=== PATIENT | female | born 1990 | race Caucasian/White ===

== ENCOUNTER 2020-07-15 10:17 | Outpatient (CLI) | payer OTHER ==
[2020-07-15 17:57] LABS: MEAN CORPUSCULAR HEMOGLOBIN 32.9 pg (27.0-31.0); MEAN CORPUSCULAR HGB CONC 33.3 g/dL (32.0-36.0); MEAN CORPUSCULAR VOLUME 98.6 fL (81.0-99.0); MEAN PLATELET VOLUME 10.8 fL (7.9-10.8); RED BLOOD COUNT 3.65 10^6/uL (4.20-5.40); WHITE BLOOD COUNT 9.7 x10^3/uL (4.8-10.8)
[2020-07-15 18:36] LABS: THYROID STIMULATING HORMONE 1.72 uIU/mL (0.34-5.60)
[2020-07-15 18:41] LABS: % IRON SATURATION 17 % (20-50); GLUCOSE,1H PP 50GM DOSE 156; IRON 84 ug/dL (28-170); TOTAL IRON BINDING CAPACITY 508 ug/dL (250-450); TRANSFERRIN 363 mg/dL (192-382)
[2020-07-15 18:42] LABS: FERRITIN 8.4 ng/mL (11.0-306.8)
== END 2020-07-15 10:18 | disposition home or self-care (01) ==
LOC: LAB.N 10:17
PROVIDERS: ATTEND Obstetrics & Gynecology
DX: O99.419 Diseases of the circulatory system complicating pregnancy, unspecified trimester (principal); R00.0 Tachycardia, unspecified
CPT/HCPCS: 36415; 82728; 82950; 83540; 84443; 84466; 85027

== ENCOUNTER 2020-07-19 07:48 | Outpatient (CLI) | payer OTHER ==
[2020-07-19 08:21] LABS: GTT GLUCOSE,FASTING 93 mg/dL (70-100)
== END 2020-07-19 07:49 | disposition home or self-care (01) ==
LOC: LAB 07:48
PROVIDERS: ATTEND Obstetrics & Gynecology
DX: O99.810 Abnormal glucose complicating pregnancy (principal)
CPT/HCPCS: 36415; 82951; 82952

== ENCOUNTER 2020-09-03 16:39 | Outpatient (CLI) | payer OTHER ==
--- NOTE | 2020-09-04 10:41 | Ultrasound Report ---
PROCEDURE: OB F/U or Repeat INDICATIONS: GESTATIONAL DIABETES OUTSIDE/PRIOR DATING DATA: Last menstrual period (LMP): Not available. LMP-based estimated date of delivery (PRUDENCE): Not available. First dating scan (date and location): 03/13/2020. Estimated date of delivery (PRUDENCE) from first dating scan: 10/02/2020. The below data below was generated using the first reported OB ultrasound PRUDENCE of 10/02/2020 TECHNIQUE: Real-time scanning was performed of the fetus, with image documentation and biometric measurements. Endovaginal scanning: Not needed COMPARISON: No images available. FINDINGS: General: A single living intrauterine gestation is present. Presentation: Variable at this time Placenta: Placental position is posterior, without previa. Amniotic fluid index: 15.7 cm, normal for gestational age. heart rate: 171 beats per minute. Maternal cervical canal: 4.2 cm long; normal length is 2.5 cm or more. biometrics: Biparietal diameter: 8.7 cm, 35 weeks 2 days Head circumference: 33.2 cm, 37 weeks 6 days Abdominal circumference: 33.5 cm, 37 weeks 3 days Femur length: 7.3 cm, 37 weeks 3 days Estimated gestational age from initial scan: 35 weeks 6 days. Composite gestational age from present scan: 37 weeks 0 days Estimated weight and percentile: 3146 g, 85th percentile Measurement variability in biometric dating: +/- 10 days from 12-20 weeks gestation, +/- 2 weeks from 20-30 weeks gestation, +/- 3 weeks at 30 weeks gestation or more. Other: Not applicable. IMPRESSION: Normal amniotic fluid volume, estimated weight at the 85th percentile. The deliver y date is projected to be centered on 10/02/2020. Limited evaluation of anatomy due to late gest ational age. Reviewed by: James Scott MD on 09/04/2020 10:40 AM PDT Approved by: James Scott MD on 09/04/2020 10:40 AM PDT Station ID: [id number]
== END 2020-09-03 16:40 | disposition home or self-care (01) ==
LOC: DI 16:39
PROVIDERS: ATTEND Obstetrics & Gynecology
DX: O24.419 Gestational diabetes mellitus in pregnancy, unspecified control (principal); Z3A.35 35 weeks gestation of pregnancy

== ENCOUNTER 2020-09-05 08:00 | Outpatient (CLI) | payer OTHER | END 2020-09-05 23:59 | LOC: LAB.WC 08:00 | PROVIDERS: ATTEND Obstetrics & Gynecology | DX: Z34.80 Encounter for supervision of other normal pregnancy, unspecified trimester (principal) | CPT/HCPCS: 87797 ==

== ENCOUNTER 2020-09-25 20:13 | Inpatient (IN) | payer OTHER ==
[2020-09-25] MEDS ORDERED: LACTATED RINGERS 1,000 ML IV ONE (20:53)
[2020-09-25] MEDS ORDERED: CARBOPROST TROMETHAMINE 250 MCG/ML AMP IM PRN (20:55)
[2020-09-25] MEDS ORDERED: miSOPROStoL 200 MCG TABLET BC PRN (20:55)
[2020-09-25] MEDS ORDERED: OXYTOCIN 10 UNIT/ML VIAL IM PRN (20:55)
[2020-09-25] MEDS ORDERED: TRANEXAMIC ACID IN NACL 1,000 MG/100 ML BAG IV PRN (20:55)
[2020-09-25] MEDS ORDERED: METHYLERGONOVINE 0.2 MG/ML VIAL IM PRN (20:55)
[2020-09-25] MEDS ORDERED: SODIUM CHLORIDE FLUSH 0.9% 10 ML SYRINGE IVP PRN (20:55)
[2020-09-25] MEDS ORDERED: LIDOCAINE-MPF 1% 30 ML VIAL ID PRN (20:55)
[2020-09-25] MEDS ORDERED: miSOPROStoL 100 MCG TABLET BC SCH (21:00)
[2020-09-25 21:10] LABS: BASOPHILS % (AUTO) 0.3 %; EOSINOPHILS # (AUTO) 0.1 10^3/uL (0.0-0.7); EOSINOPHILS % (AUTO) 0.9 %; HCT - HEMATOCRIT 36.7 % (37.0-47.0); HGB - HEMOGLOBIN 11.8 g/dL (12.0-16.0); LYMPHOCYTES # (AUTO) 1.4 10^3/uL (1.5-3.5); LYMPHOCYTES % (AUTO) 13.1 %; MEAN CORPUSCULAR HEMOGLOBIN 30.6 pg (27.0-31.0); MEAN CORPUSCULAR HGB CONC 32.2 g/dL (32.0-36.0); MEAN CORPUSCULAR VOLUME 95.1 fL (81.0-99.0); MEAN PLATELET VOLUME 11.8 fL (7.9-10.8); MONOCYTES # (AUTO) 0.6 10^3/uL (0.0-1.0); MONOCYTES % (AUTO) 6.2 %; NEUTROPHILS # (AUTO) 8.1 10^3/uL (1.5-6.6); NEUTROPHILS % (AUTO) 78.7 %; PLT - PLATELET COUNT 180 10^3/uL (130-450); RED BLOOD COUNT 3.86 10^6/uL (4.20-5.40); RED CELL DISTRIBUTION WIDTH 13.7 % (12.0-15.0); WHITE BLOOD COUNT 10.3 x10^3/uL (4.8-10.8)
[2020-09-25 21:22] LABS: ALBUMIN 3.5 g/dL (3.2-5.5); ALBUMIN/GLOBULIN RATIO 1.1 (1.0-2.2); BILIRUBIN,TOTAL 0.6 mg/dL (0.2-1.0); CALCIUM 9.2 mg/dL (8.5-10.3); CREATININE 0.7 mg/dL (0.4-1.0); POTASSIUM 4.3 mmol/L (3.5-5.0); TOTAL PROTEIN 6.6 g/dL (6.7-8.2)
--- NOTE | 2020-09-25 21:22 | HISTORY & PHYSICAL EXAMINATION ---
Admit History - Visit Reason Visit Reason: Other (Patient is being admitted for induction due to GDM Type A1.) - : 3 Parity: 2 Premature: 0 Ectopic: 0 : 0 Care: positive: [facility] (Patient has had care with Dr. Jade.) Risk/History: positive: Gestational diabetes (Diet controlled GDM, Type A1), Labor induction Smoking Status: Never smoker - Mother's Labs Mother's Blood Type: positive: A Mother's RH: positive: Positive GBS: positive: Group B Step Negative Rubella Status: positive: Immune Meds/Allgy - Allergies Allergies/Adverse Reactions: Allergies Allergy/AdvReac Type Severity Reaction Status Date / Time No Known Drug Allergies Allergy Verified 09/25/20 20:54 Review of Systems - Cardiovascular Cariovascular: denies: Irregular heart rate, Palpitations - Respiratory Respiratory: denies: Cough, Wheezing - Gastrointestinal Gastrointestinal: denies: Abdominal pain - Genitourinary Genitourinary: denies: Dysuria - Musculoskeletal Musculoskeletal: denies: Muscle pain - Integumentary Integumentary: denies: Rash - Neurological Neurological: denies: General weakness - Psychiatric Psychiatric: denies: Depression, Anxiety Physical - Abdominal Exam Vital Signs: Temp Pulse Resp BP Pulse Ox 97.7 F 93 16 129/76 09/25/20 20:23 09/25/20 20:23 09/25/20 20:23 09/25/20 20:23 Contraction Frequency (min/apart): Irregular contractions when admitted, spacing out. Contraction Intensity: positive: Mild - Monitoring Strip Review: positive: Category I (When patient first placed on monitor heart rate was 150's with moderate variability. Patient had one very short variabile decelerations. 500cc fluid bolus of LR started and heart rate is down to 140's with moderate variability and accelerations.) - Presentation Presentation: positive: Vertex - Vaginal Exam Membranes: positive: Membranes intact Dilation (in cm): 2cm Effacement (%): 50% Station: positive: -3, Ballotable - Speculum Exam Speculum Exam Performed: positive: No - Other Notes Labor Progress Note/Additional Text: Abdomen: Soft, non-tender to palpation. Chest: Clear to auscultation. Good breath sounds in all liz. Heart: RRR without murmur or gallop. Extremities: No pretibial or pedal edema. ' Neuor: DTR's +2/+4, Alert and oriented times three. Plan for Labor - Plan For Labor Plan for Labor: Discussed with patient and induction of labor due to 39 0/7 and Gestational Diabetes. Discussed starting with Cytotec and transitioning to Pitocin. Discussed that Epidural is available. Patient has had two unmedicated deliveries, but is open to Epidural. A-IUP 39 0/7 with Gestational Diabetes Type A1. P- Cytotec 50mcg bucal placement Q 6 hours. Not to exceed 6 doses. Will progress to Pitocin as cervix progresses. Continuous monitoring. Physical Exam Height: 5 ft 6 in
[2020-09-25] MEDS ORDERED: LACTATED RINGERS 1,000 ML IV SCH (22:00)
[2020-09-26] MEDS ORDERED: TERBUTALINE 1 MG/ML VIAL SUBQ PRN
[2020-09-26] MEDS ORDERED: SODIUM CHLORIDE FLUSH 0.9% 10 ML SYRINGE IVP SCH (01:00)
[2020-09-26] MEDS ORDERED: ROPIVACAINE 0.2% 0 MG/0 ML BAG EP ONE (03:34)
[2020-09-26] MEDS: LACTATED RINGERS 1,000 ML IV SCH ×2 (03:39→11:21)
--- NOTE | 2020-09-26 05:40 | ANESTHESIA ---
Pre-Anesthesia VS, & Labs - Diagnosis labor induction - Procedure epidural Vital Signs: Temp Pulse Resp BP Pulse Ox 36.5 C 93 16 129/76 09/25/20 20:23 09/25/20 20:23 09/25/20 20:23 09/25/20 20:23 Height: 5 ft 6 in Weight (kg): 95.708 kg Body Mass Index: 34.0 BMI Classification: Obese - NPO Other - Is Patient ?: Yes - Lab Results Current Lab Results: Laboratory Tests 09/25/20 22:45: POC Whole Bld Glucose 110 H 09/25/20 20:42: Sodium 137, Potassium 4.3, Chloride 109, Carbon Dioxide 20 L, Anion Gap 8.0, BUN 10, Creatinine 0.7, Estimated GFR (MDRD) 98, Glucose 74, Calcium 9.2, Total Bilirubin 0.6, AST 31, ALT 23, Alkaline Phosphatase 171 H, Total Protein 6.6 L, Albumin 3.5, Globulin 3.1, Albumin/Globulin Ratio 1.1 09/25/20 20:42: WBC 10.3, RBC 3.86 L, Hgb 11.8 L, Hct 36.7 L, MCV 95.1, MCH 30 .6, MCHC 32.2, RDW 13.7, Plt Count 180, MPV 11.8 H, Neut # (Auto) 8.1 H, Lymph # (Auto) 1.4 L, Elliott # (Auto) 0.6, Eos # (Auto) 0.1, Baso # (Auto) 0.0, Absolute Nucleated RBC 0.00, Nucleated RBC % 0.0 09/25/20 20:42: Blood Type A POSITIVE, Antibody Screen NEGATIVE Fish Bones: 09/25/20 20:42 09/25/20 20:42 Home Medications and Allergies Active Medications Carboprost Tromethamine (Carboprost Tromethamine 250 Mcg/Ml Amp) 250 mcg IM Q15M PRN PRN Reason: Step 4: Hemorrhage protocol Stop: 09/30/20 20:56 Oxytocin/Sodium Chloride (Pitocin/Sodium Chloride) 500 mls @ 999 mls/hr IV PRN PRN; Protocol PRN Reason: POST- HEMORR PREVENTION Stop: 09/30/20 20:56 Tranexamic Acid (Tranexamic 1,000 Mg/100ml-Nacl) 1,000 mg in 100 mls @ 600 mls/hr IV .ONCE PRN PRN Reason: EBL >1200mL and within 3hr Stop: 09/30/20 20:56 Lactated Ringer's (Lr) 1,000 mls @ 100 mls/hr IV .Q10H [facility] Last Admin: 09/26/20 03:39 Dose: 100 mls/hr Documented by: Lactated Ringer's (Lr) 1,000 mls @ 500 mls/hr IV .Q2H [facility] Last Infusion: 09/26/20 00:29 Dose: Infused Documented by: Lidocaine HCl (Lidocaine-Mpf 1% 30 Ml Vial) 30 ml ID .ONCE PRN PRN Reason: PERINEAL REPAIR Stop: 09/30/20 20:56 Methylergonovine Maleate (Methylergonovine 0.2 Mg/Ml Vial) 0.2 mg IM .ONCE PRN PRN Reason: Step 2: Hemorrhage protocol Stop: 09/30/20 20:56 Misoprostol (Misoprostol 200 Mcg Tablet) 800 mcg BC .ONCE PRN PRN Reason: Step 3: Hemorrhage protocol Stop: 09/30/20 20:56 Misoprostol (Misoprostol 100 Mcg Tablet) 50 mcg BC Q4HR [facility] Last Admin: 09/25/20 21:27 Dose: 50 mcg Documented by: Oxytocin (Oxytocin 10 Unit/Ml Vial) 10 unit IM .ONCE PRN PRN Reason: Step one: If no IV access Stop: 09/30/20 20:56 Sodium Chloride (Sodium Chloride Flush 0.9% 10 Ml Syringe) 10 ml IVP 0100,0900,1700 [facility] Sodium Chloride (Sodium Chloride Flush 0.9% 10 Ml Syringe) 10 ml IVP PRN PRN PRN Reason: NEEDED PER PROVIDER ORDERS Terbutaline Sulfate (Terbutaline 1 Mg/Ml Vial) 0.25 mg SUBQ PRN PRN PRN Reason: Tachysystole Allergies/Adverse Reactions: Allergies Allergy/AdvReac Type Severity Reaction Status Date / Time lidocaine AdvReac Respiratory Verified 09/26/20 04:29 Anes History & Medical History - Anesthetic History Anesthesia Complications: reports: No previous complications - Medical History Smoking Status: Never smoker - Obstetrical History : 3 Parity: 2 Events: reports: Gestational diabetes (Diet controlled GDM, Type A1), Labor induction Exam General: Alert Dental: WNL Mouth Opening: Greater than 4 Fingerbreadths Mallampati classification: II Thyromental Distance: greater than 6 cm Respiratory: Lungs clear Cardiovascular: Regular rate Plan Anesthesia Type: Epidural Consent for Procedure(s) Verified and Reviewed: Yes Code Status: Attempt Resuscitation ASA classification: 2-Mild systemic disease Is this case an emergency?: No
[2020-09-26] MEDS ORDERED: OXYTOCIN/SODIUM CHLORIDE 500 ML IV SCH (07:00)
[2020-09-26] MEDS: ACETAMINOPHEN 500 MG TABLET PO PRN ×2 (09:21→19:11)
--- NOTE | 2020-09-26 09:42 | PROVIDER PROGRESS NOTE ---
Labor Progress Note - Uterine Monitoring Contraction Intensity: positive: Mild to moderate (Moderate now) - Monitoring Monitor Mode: positive: External ultrasound Heart Rate Variability: positive: Moderate (6-25 bmp) Accelerations: positive: Present, 15x15 Decelerations: positive: None (Small variable after AROM) - Vaginal Exam Dilation (in cm): 4 Effacement (%): 50 Station: -3 (No longer ballotable)
--- NOTE | 2020-09-26 09:48 | PROVIDER PROGRESS NOTE ---
Subjective - Prog Note Date Prog Note Date: 09/26/20 Prog Note Time: 09:45 - Subjective Pt reports feeling: Improved Subjective: Patient is feeling better than she was at 6:00am. is in room now, he has to leave at noon due to children[employer] attendant issues. Patient was sitting in bed, breathing with contractions when entered room. Discussed attempting to AROM if head was not ballotable. Patient and agreed to this exam and procedure. Objective - Vital Signs/Intake & Output Intake & Output: Intake & Output 09/23/20 09/24/20 09/25/20 09/26/20 23:59 23:59 23:59 23:59 Intake Total 500 501.767 Balance 500 501.767 - Lab Results Fish Bones: 09/25/20 20:42 09/25/20 20:42 Other Labs: Lab Results x24hrs 09/26/20 09/25/20 09/25/20 Range/Units 06:33 22:45 20:42 WBC (4.8-10.8) x10^3/uL RBC (4.20-5.40) 10^6/uL Hgb (12.0-16.0) g/dL Hct (37.0-47.0) % MCV (81.0-99.0) fL MCH (27.0-31.0) pg MCHC (32.0-36.0) g/dL RDW (12.0-15.0) % Plt Count (130-450) 10^3/uL MPV (7.9-10.8) fL Neut # (Auto) (1.5-6.6) 10^3/uL Lymph # (Auto) (1.5-3.5) 10^3/uL Chester # (Auto) (0.0-1.0) 10^3/uL Eos # (Auto) (0.0-0.7) 10^3/uL Baso # (Auto) (0.0-0.1) 10^3/uL Absolute Nucleated RBC x10^3/uL Nucleated RBC % /100WBC Sodium 137 (135-145) mmol/L Potassium 4.3 (3.5-5.0) mmol/L Chloride 109 (101-111) mmol/L Carbon Dioxide 20 L (21-32) mmol/L Anion Gap 8.0 (6-13) BUN 10 (6-20) mg/dL Creatinine 0.7 (0.4-1.0) mg/dL Estimated GFR (MDRD) 98 (>89) Glucose 74 (70-100) mg/dL POC Whole Bld Glucose 117 H 110 H (70 - 100) mg/dL Calcium 9.2 (8.5-10.3) mg/dL Total Bilirubin 0.6 (0.2-1.0) mg/dL AST 31 (10-42) IU/L ALT 23 (10-60) IU/L Alkaline Phosphatase 171 H (42-121) IU/L Total Protein 6.6 L (6.7-8.2) g/dL Albumin 3.5 (3.2-5.5) g/dL Globulin 3.1 (2.1-4.2) g/dL Albumin/Globulin Ratio 1.1 (1.0-2.2) Blood Type Antibody Screen 09/25/20 09/25/20 Range/Units 20:42 20:42 WBC 10.3 (4.8-10.8) x10^3/uL RBC 3.86 L (4.20-5.40) 10^6/uL Hgb 11.8 L (12.0-16.0) g/dL Hct 36.7 L (37.0-47.0) % MCV 95.1 (81.0-99.0) fL MCH 30.6 (27.0-31.0) pg MCHC 32.2 (32.0-36.0) g/dL RDW 13.7 (12.0-15.0) % Plt Count 180 (130-450) 10^3/uL MPV 11.8 H (7.9-10.8) fL Neut # (Auto) 8.1 H (1.5-6.6) 10^3/uL Lymph # (Auto) 1.4 L (1.5-3.5) 10^3/uL Chester # (Auto) 0.6 (0.0-1.0) 10^3/uL Eos # (Auto) 0.1 (0.0-0.7) 10^3/uL Baso # (Auto) 0.0 (0.0-0.1) 10^3/uL Absolute Nucleated RBC 0.00 x10^3/uL Nucleated RBC % 0.0 /100WBC Sodium (135-145) mmol/L Potassium (3.5-5.0) mmol/L Chloride (101-111) mmol/L Carbon Dioxide (21-32) mmol/L Anion Gap (6-13) BUN (6-20) mg/dL Creatinine (0.4-1.0) mg/dL Estimated GFR (MDRD) (>89) Glucose (70-100) mg/dL POC Whole Bld Glucose (70 - 100) mg/dL Calcium (8.5-10.3) mg/dL Total Bilirubin (0.2-1.0) mg/dL AST (10-42) IU/L ALT (10-60) IU/L Alkaline Phosphatase (42-121) IU/L Total Protein (6.7-8.2) g/dL Albumin (3.2-5.5) g/dL Globulin (2.1-4.2) g/dL Albumin/Globulin Ratio (1.0-2.2) Blood Type A POSITIVE Antibody Screen NEGATIVE - Other Results/Comments Other Results/Comments: CX: 4/50/-3 not ballotable. monitor strip was Category I. AROM performed, clear fluid seen. monitor displayed small, variable deceleration after AROM. Pitocin currently on 2miu/min. Will continue to increase. A-IUP 39 03/14 with GDM Type A1 P-Continue induction of labor. Anticipate .
[2020-09-26] MEDS ORDERED: fentaNYL 100 MCG/2 ML VIAL IVP PRN (11:48)
--- NOTE | 2020-09-26 12:33 | PROVIDER PROGRESS NOTE ---
Labor Progress Note - Uterine Monitoring Contraction Frequency (min/apart): 3-4 Contraction Intensity: positive: Moderate to strong Uterine Resting Tone: positive: Soft - Monitoring Monitor Mode: positive: Spiral electrode (FSE placed due to inability to monitor on External toco when paitent in Hand and knees.) Heart Rate Variability: positive: Moderate (6-25 bmp) (Last 30 minutes difficut to assess do to patient inability to stay still and be monitored.) - Vaginal Exam Dilation (in cm): 8 Effacement (%): 70%% from 10-12, 90%everywhere else. Station: -1 - Labor Progress Note Labor Progress Note/Additional Text: Patient has received Fentanyl and is tolerating contractions better than prior to receiving it. Patient is very uncomfortable on her back, and insists on Hand knees. Unable to monitor fetus accurately while on hand knees, so explained to patient and need to accurately monitor with FSE. They did not have questions about it. FSE placed and FHT's in 140-150 with moderate variability. Contractions every 3-4 with Pitocin at 3miu/min. Cervix was 8/with 70% effacement between 10 and 12 and 90% everywhere else. Continue monitoring.
[2020-09-26] MEDS: OXYTOCIN/SODIUM CHLORIDE 500 ML IV PRN ×2 (13:46→14:14)
--- NOTE | 2020-09-26 14:05 | DELIVERY NOTE ---
Delivery Note - Labor Labor: positive: Other (Induction at 39 0/7 for GDM A1. Cytotec, followed by Pitocin, then AROM.) - Infant Delivery Method Delivery Method: positive: Spontaneous vaginal delivery - Cervical Ripening Method Cervical Ripening Method: positive: Misoprostil - Presentation Presentation: positive: Vertex, SHAR - right occiput anterior - Nuchal Cord Nuchal Cord: positive: None - Anesthetic Anesthetic: positive: Lidocaine - 1% plain Volume: positive: 5cc - Amniotic Fluid Description Amniotic Fluid Description: positive: Clear - Episiotomy Type Episiotomy Type: positive: None - Laceration Laceration: positive: 1st degree - Suture Suture Type: positive: Vicryl Suture Size: positive: 2-0 - Delivery Outcome Delivery Outcome: positive: Livebirth - Hardin : positive: Placed in direct skin contact with mother Hardin sex: positive: Male - Cord Cord: positive: 3 vessels - Placenta Placenta: positive: Intact, Spontaneous - Estimated Blood Loss Estimated Blood Loss (in cc): 200 - Post Delivery Events Post Delivery Events: positive: No post delivery events - Delivery Comments (Free Text/Narrative) Delivery Comments (Free Text/Narrative): Patient is 30yo with Gestational Diabetes who was admitted for induction at 39 0/7. Induction started with Cytotec. Patient had Epidural placed but had ringing in her ears with test dose. Patient did not want to have a second attempt. Patient agreed to have Pitocin started at this point due to cervical progression to 4cm/50/-3 and ballotable. At 9:30 am head was still -3, but not ballotable. AROM performed with clear fluid. Patient progressed to complete. over intact perineum. Head delivered in SHAR position. Maternal forces delivered anterior shoulders under pubic bone and remainder of delivered spontaneously. Living male with apgars of 8/9 Pitocin started in IV. Placenta delivered spontaneously, Intact with RIDGE present. Cervix inspected and found to be intact and no bruising present. There was first degree laceration about 2cm in length. 2-0 Vicryl in running fashion, subcuticular to repair the laceration. Good hemostasis was present. No other lacerations or tears. Fundal massage was performed. Uterus was firm and below the umbilicus. EBL is 200cc. Active labor at 9:30 am. AROM at 9:231 am with clear fluid. Complete at 1337, Pushing at 1337. Delivered at 1340.
[2020-09-26] MEDS ORDERED: HYDROCORTISONE 1% CREAM 28 GM TUBE PR PRN (14:23)
[2020-09-26] MEDS ORDERED: ONDANSETRON ODT 4 MG TABLET TL PRN (14:23)
[2020-09-26] MEDS ORDERED: SIMETHICONE CHEW 80 MG TABLET PO PRN (14:23)
[2020-09-26] MEDS ORDERED: LACTATED RINGERS 1,000 ML IV SCH (15:00)
[2020-09-26] MEDS: IBUPROFEN 600 MG TABLET PO SCH ×2 (15:29→21:32)
[2020-09-26] MEDS: oxyCODONE 5 MG TABLET PO PRN ×2 (15:30→21:32)
[2020-09-27] MEDS: ACETAMINOPHEN 500 MG TABLET PO PRN ×2 (03:17→10:41)
[2020-09-27] MEDS: IBUPROFEN 600 MG TABLET PO SCH ×2 (03:17→10:40)
--- NOTE | 2020-09-27 11:50 | DISCHARGE SUMMARY ---
"Discharge Summary Admit Date: 09/25/20 Discharge Date: 09/27/20 Discharging Provider: Ashley Cotto DO Code Status: Attempt Resuscitation Condition at Discharge: Good Discharge Disposition: 01 Home, Self Care - DIAGNOSES Admission Diagnoses: IUP 39 0/7, GDM A1 Discharge Diagnoses with Status of Each Condition: S/P without complications. - HPI History of Present Illness: Patient was admitted for Induction of labor for GDM Type A1. IUP 39 0/7. - CONSULTS | PROCEDURES Consultations: None Procedures: Induction of labor included Cytotec, Pitocin and AROM. Normal spontaneous vaginal Delivery with 1st degree perineal laceration that was repaired. - HOSPITAL COURSE Hospital Course: Patient had Induction of labor that was started with Cytotec. Pitocin was then utilized. Finally, AROM was performed. Patient had of living male with Apgars of 8/9. First degree laceration of perineum was repaired to obtain hemostasis. Patient is doing well in period and desires to go home this afternoon. Patient is tolerating a regular diet, ambulating, urinating without difficulty. Patient will continue Motrin and Tylenol for pain. Pain is currently well controlled on these medications. - ALLERGIES Allergies/Adverse Reactions: Allergies Allergy/AdvReac Type Severity Reaction Status Date / Time lidocaine AdvReac Severe Respiratory Verified 09/27/20 11:55 - PHYSICAL EXAM AT DISCHARGE General Appearance: positive: No acute distress Eyes Bilateral: positive: Normal inspection Neck: positive: Nml inspection Respiratory: positive: Chest non-tender, No respiratory distress, Breath sounds nml Cardiovascular: positive: Regular rate & rhythm, No murmur, No gallop Abdomen: positive: Non-tender, Nml bowel sounds, Other (Fundus is firm and below the umbilicus.) Skin: positive: Color nml Extremities: positive: Non-tender, No pedal edema, Other (Patient states her feet feel swollen. No pitting pedal or pretibial edema on Exam.) Neurologic/Psychiatric: positive: Oriented x3, Mood/affect nml - LABS Result Diagrams: 09/25/20 20:42 09/25/20 20:42 - QUALITY (Female Hip Fx Only) Was patient sent home on osteoporosis medication?: No - FOLLOW UP Follow Up: In Clinic in one week for Blood Pressure check. 4-6 weeks for visit. Patient will have regular diet. Pelvic rest for 6 weeks. Call for fever, chills, nausea or vomiting. Patient to call if has blurred vision, headache or any heavy bleeding. Motrin and Tylenol for pain which patient already has at h ome."
[2020-09-27 13:35] VITALS: BP 117/75
== END 2020-09-27 14:30 | disposition home or self-care (01) | DRG 807 ==
LOC: WFO 20:13 → FBP 20:16 → WFO 20:54 → FBP 20:55
PROVIDERS: ADMIT Obstetrics & Gynecology; ATTEND Obstetrics & Gynecology
PROC: 3E0DXGC Introduction of Other Therapeutic Substance into Mouth and Pharynx, External Approach (ICD-10-PCS; principal; 2020-09-25)
PROC: 10E0XZZ Delivery of Products of Conception, External Approach (ICD-10-PCS; 2020-09-26)
PROC: 10907ZC Drainage of Amniotic Fluid, Therapeutic from Products of Conception, Via Natural or Artificial Opening (ICD-10-PCS; 2020-09-26)
PROC: 0HQ9XZZ Repair Perineum Skin, External Approach (ICD-10-PCS; 2020-09-26)
DX: O24.420 Gestational diabetes mellitus in childbirth, diet controlled (principal); Z37.0 Single live birth; O70.0 First degree perineal laceration during delivery; Z3A.39 39 weeks gestation of pregnancy; O99.214 Obesity complicating childbirth
CPT/HCPCS: 36415; 80053; 85025; 86850; 86900; 86901; 87635; A9270; J7120